=== PATIENT | female | born 1950 | race Caucasian/White ===

== ENCOUNTER → 2016-08-01 | Outpatient (CLI) | payer OTHER, BC | LOC: BMCIMAGING 08:57 | PROVIDERS: ATTEND Internal Medicine | DX: Z12.31 Encounter for screening mammogram for malignant neoplasm of breast (principal) | CPT/HCPCS: G0202 ==

== ENCOUNTER → 2017-08-15 | Outpatient (CLI) | payer OTHER, BC | LOC: BMCIMAGING 08:31 | PROVIDERS: ATTEND Internal Medicine | DX: Z12.31 Encounter for screening mammogram for malignant neoplasm of breast (principal) ==

== ENCOUNTER → 2018-04-02 | Outpatient (CLI) | payer OTHER, BC | LOC: BMCIMAGING 14:25 | PROVIDERS: ATTEND Internal Medicine | DX: I83.891 Varicose veins of right lower extremity with other complications (principal); I82.811 Embolism and thrombosis of superficial veins of right lower extremity ==

== ENCOUNTER → 2018-08-16 | Outpatient (CLI) | payer OTHER, BC | LOC: FIMAGING 13:51 ==